=== PATIENT | male | born 1960 | race African-American/Black ===

== ENCOUNTER 2021-05-05 02:02 | Inpatient (IN) | payer MEDICAID ==
[~2021-05-05] VITALS: Ht 177.8 cm; Wt 76.7 kg
[~2021-05-05 02:02] MED LIST: ASPI-1406 PO; FURO-151 PO; LISI2.5T47 MT
[2021-05-05] MEDS ORDERED: BENZONATATE 100MG CAPSULE PO ONE (02:30)
[2021-05-05 02:43] LABS: BASOPHILS % 0.8 % (0.0-2.0); EOSINOPHILS % 1.2 % (0.0-5.0); HEMATOCRIT. 35.1 % (42.0-52.0); HEMOGLOBIN. 11.2 g/dL (14.0-18.0); LYMPHOCYTES % 27.8 % (20.0-50.0); MEAN CORPUSCULAR HEMOGLOBIN 30.3 pg (28.0-32.0); MEAN CORPUSCULAR VOLUME 95.1 fL (80.0-94.0); MEAN PLATELET VOLUME 7.9 fl (7.4-10.4); MONOCYTES % 11.1 % (2.0-8.0); NEUTROPHILS % 59.1 % (40.0-76.0); PLATELET 270 x1000/uL (130-400); RED BLOOD CELL COUNT 3.69 mill/uL (4.7-6.1); RED CELL DISTRIBUTION WIDTH 18.8 % (11.6-14.6)
[2021-05-05 02:48] LABS: CHLORIDE 108 mEq/L (98-107)
[2021-05-05] MEDS ORDERED: FUROSEMIDE 40MG/4ML VIAL IV ONE (03:45)
[2021-05-05 05:38] LABS: *BENZODIAZEPINES SCREEN URINE NEGATIVE (NEGATIVE); METHADONE URINE SCREEN NEGATIVE (NEGATIVE); OPIATES URINE SCREEN NEGATIVE (NEGATIVE); PHENCYCLIDINE URINE SCREEN PRESUMTIVE POSITIVE (NEGATIVE)
[2021-05-05 05:39] LABS: *AMPHETAMINES SCREEN URINE NEGATIVE (NEGATIVE); *BARBITURATES SCREEN URINE NEGATIVE (NEGATIVE); *COCAINE SCREEN URINE PRESUMTIVE POSITIVE (NEGATIVE); CANNABINOID URINE SCREEN NEGATIVE (NEGATIVE)
[2021-05-05] MEDS ORDERED: CLONIDINE 0.1MG TABLET PO PRN (06:30)
[2021-05-05] MEDS ORDERED: ACETAMINOPHEN 325MG TABLET PO PRN (06:30)
[2021-05-05] MEDS ORDERED: ONDANSETRON HCL 4MG/2ML INJ IV PRN (06:30)
[2021-05-05] MEDS: FUROSEMIDE 20MG/2ML VIAL IVP SCH ×2 (06:42→18:24)
[2021-05-05] MEDS: SPIRONOLACTONE 25MG TABLET PO SCH ×2 (06:43→18:00)
[2021-05-05] MEDS: ASPIRIN 325MG EC TABLET PO SCH (08:25)
[2021-05-05] MEDS: NITROGLYCERIN 0.4MG TABLET SL SL PRN ×2 (08:25→14:15)
[2021-05-05 10:30] VITALS: BP 116/62
[2021-05-05] MEDS: FAMOTIDINE 20MG TABLET PO SCH ×2 (10:57→20:37)
[2021-05-05] MEDS: KETOROLAC 15MG/ML VIAL IV PRN (10:57)
[2021-05-05] MEDS: GUAIFENESIN 200MG/10ML SUGAR FREE UDC PO PRN ×2 (10:57→17:18)
[2021-05-05] MEDS: ENOXAPARIN 40MG/0.4ML SYR SUBCUT SCH (10:58)
[2021-05-05] MEDS ORDERED: ATOR-2 MT (11:34)
[2021-05-05] MEDS ORDERED: LOSA25TA26 MT (11:34)
[2021-05-05] MEDS ORDERED: FURO-152 PO (11:34)
[2021-05-05] MEDS ORDERED: ISOS10TA2 MT (11:34)
[2021-05-05] MEDS ORDERED: HYDR-4133 PO (11:34)
[2021-05-05 12:00] VITALS: BP 131/76
[2021-05-05] MEDS: DILTIAZEM HCL 60MG TABLET PO SCH ×2 (12:49→18:00)
[2021-05-05 16:00] VITALS: BP 102/62
[2021-05-05 17:28] LABS: CREATINE KINASE MB FRACTION 1.8 ng/mL (0.5-3.6)
[2021-05-05 20:00] VITALS: BP 107/54
[2021-05-06] VITALS: BP 127/51
[2021-05-06] MEDS: NITROGLYCERIN 0.4MG TABLET SL SL PRN ×2 (00:02→04:26)
[2021-05-06] MEDS: DILTIAZEM HCL 60MG TABLET PO SCH ×4 (00:02→17:53)
[2021-05-06 04:00] VITALS: BP 108/51
[2021-05-06 04:21] LABS: BASOPHILS % 0.9 % (0.0-2.0); EOSINOPHILS % 0.7 % (0.0-5.0); HEMATOCRIT. 33.3 % (42.0-52.0); HEMOGLOBIN. 10.6 g/dL (14.0-18.0); LYMPHOCYTES % 33.8 % (20.0-50.0); MEAN CORPUSCULAR HEMOGLOBIN 30.2 pg (28.0-32.0); MEAN CORPUSCULAR VOLUME 94.6 fL (80.0-94.0); MEAN PLATELET VOLUME 8.6 fl (7.4-10.4); MONOCYTES % 9.9 % (2.0-8.0); NEUTROPHILS % 54.7 % (40.0-76.0); PLATELET 272 x1000/uL (130-400); RED BLOOD CELL COUNT 3.52 mill/uL (4.7-6.1); RED CELL DISTRIBUTION WIDTH 18.8 % (11.6-14.6)
[2021-05-06 04:34] LABS: CHLORIDE 105 mEq/L (98-107)
[2021-05-06 04:42] LABS: PHOSPHORUS 4.2 mg/dL (2.5-4.9)
[2021-05-06 04:44] LABS: CREATINE KINASE 45 IU/L (39-308)
[2021-05-06 04:47] LABS: CREATINE KINASE MB FRACTION 1.7 ng/mL (0.5-3.6)
[2021-05-06] MEDS: SPIRONOLACTONE 25MG TABLET PO SCH ×2 (05:22→17:51)
[2021-05-06] MEDS: ACETAMINOPHEN 325MG TABLET PO PRN ×2 (05:22→22:46)
[2021-05-06] MEDS: FUROSEMIDE 20MG/2ML VIAL IVP SCH ×2 (05:23→17:50)
[2021-05-06] MEDS: IPRATROPIUM/ALBUTEROL 0.5-3(2.5)MG/3ML NEB NEB PRN (05:56)
[2021-05-06 08:00] VITALS: BP 128/54
[2021-05-06] MEDS: ASPIRIN 325MG EC TABLET PO SCH (09:16)
[2021-05-06] MEDS: FAMOTIDINE 20MG TABLET PO SCH ×2 (09:16→21:11)
[2021-05-06] MEDS: ENOXAPARIN 40MG/0.4ML SYR SUBCUT SCH (09:17)
[2021-05-06 12:00] VITALS: BP 125/57
[2021-05-06 16:00] VITALS: BP 101/60
[2021-05-06] MEDS: KETOROLAC 15MG/ML VIAL IV PRN (16:36)
[2021-05-06 20:00] VITALS: BP 94/40
[2021-05-06] MEDS: DOCUSATE SODIUM 100MG CAPSULE PO PRN (21:45)
[2021-05-06] MEDS: MAGNESIUM/ALUMINUM HYDROXIDE/SIMETHICONE 30ML UDC PO PRN (21:45)
[2021-05-07] VITALS: BP 98/45
[2021-05-07] MEDS: ZOLPIDEM TARTRATE 5MG TABLET PO PRN ×2 (00:33→21:09)
[2021-05-07] MEDS: IPRATROPIUM/ALBUTEROL 0.5-3(2.5)MG/3ML NEB NEB PRN ×2 (00:50→21:34)
[2021-05-07 04:00] VITALS: BP 105/43
[2021-05-07] MEDS: DILTIAZEM HCL 60MG TABLET PO SCH ×4 (06:00→17:57)
[2021-05-07] MEDS: FUROSEMIDE 20MG/2ML VIAL IVP SCH ×2 (06:11→17:57)
[2021-05-07] MEDS: GUAIFENESIN 200MG/10ML SUGAR FREE UDC PO PRN ×2 (06:12→21:09)
[2021-05-07] MEDS: SPIRONOLACTONE 25MG TABLET PO SCH ×2 (06:12→17:57)
[2021-05-07] MEDS: FAMOTIDINE 20MG TABLET PO SCH ×2 (09:29→21:09)
[2021-05-07] MEDS: ENOXAPARIN 40MG/0.4ML SYR SUBCUT SCH (09:29)
[2021-05-07] MEDS: MAGNESIUM/ALUMINUM HYDROXIDE/SIMETHICONE 30ML UDC PO PRN (09:29)
[2021-05-07] MEDS: ASPIRIN 325MG EC TABLET PO SCH (09:29)
[2021-05-07 12:00] VITALS: BP 100/50
[2021-05-07] MEDS: ACETAMINOPHEN 325MG TABLET PO PRN (14:26)
[2021-05-07 16:00] VITALS: BP 110/55
[2021-05-07 20:00] VITALS: BP 113/53
[2021-05-08] VITALS: BP 113/54
[2021-05-08 04:00] VITALS: BP 115/49
[2021-05-08] MEDS: ACETAMINOPHEN 325MG TABLET PO PRN (04:55)
[2021-05-08] MEDS: FUROSEMIDE 20MG/2ML VIAL IVP SCH (06:19)
[2021-05-08] MEDS: DILTIAZEM HCL 60MG TABLET PO SCH ×3 (06:19→12:54)
[2021-05-08] MEDS: SPIRONOLACTONE 25MG TABLET PO SCH (06:20)
[2021-05-08 08:00] VITALS: BP 132/54
[2021-05-08] MEDS: DOCUSATE SODIUM 100MG CAPSULE PO PRN (08:34)
[2021-05-08] MEDS: ASPIRIN 325MG EC TABLET PO SCH (08:34)
[2021-05-08] MEDS: FAMOTIDINE 20MG TABLET PO SCH (08:34)
[2021-05-08] MEDS: ENOXAPARIN 40MG/0.4ML SYR SUBCUT SCH (08:35)
[2021-05-08 12:00] VITALS: BP 140/55
[2021-05-08 12:11] VITALS: BP 140/55
== END 2021-05-08 15:17 | disposition home or self-care (01) | DRG 194 ==
LOC: ER 02:02 → 6WST 04:48 → EDBEDREQ 04:52 → EDBEDREQTM 04:52 → ENRESERV 07:13
PROVIDERS: ADMIT Internal Medicine; ATTEND Internal Medicine
DX: I11.0 Hypertensive heart disease with heart failure (principal); J96.91 Respiratory failure, unspecified with hypoxia; E44.1 Mild protein-calorie malnutrition; D63.8 Anemia in other chronic diseases classified elsewhere; I50.43 Acute on chronic combined systolic (congestive) and diastolic (congestive) heart failure; I42.9 Cardiomyopathy, unspecified; F17.210 Nicotine dependence, cigarettes, uncomplicated; E78.00 Pure hypercholesterolemia, unspecified; Z20.822 Contact with and (suspected) exposure to COVID-19; F14.10 Cocaine abuse, uncomplicated; F16.10 Hallucinogen abuse, uncomplicated; Z82.49 Family history of ischemic heart disease and other diseases of the circulatory system; Z91.19 Patient's noncompliance with other medical treatment and regimen; Z88.0 Allergy status to penicillin; Z68.24 Body mass index [BMI] 24.0-24.9, adult
CPT/HCPCS: 36415; 71045; 80053; 80061; 80305; 82550; 82553; 83036; 83735; 83880; 84100; 84484; 85025; 85379; 87426; 94640; 99285; C1893; J1650; J1885; J1940